=== PATIENT | female | born 1965 | race Caucasian/White ===

== ENCOUNTER 2016-10-12 12:34 | Emergency (ER) | payer BC ==
[~2016-10-12] VITALS: Ht 157.5 cm; Wt 62.5 kg
[~2016-10-12 12:34] MED LIST: PANT40TA4 PO
[2016-10-12 12:36] VITALS: Ht 157.5 cm; Wt 62.5 kg
[2016-10-12] MEDS ORDERED: ONDANSETRON (ODT) 4 MG TAB ODT STA (13:07)
[2016-10-12] MEDS ORDERED: HYDROCODONE/APAP (5/325) TAB PO ONE (13:30)
[2016-10-12] MEDS ORDERED: IBUPROFEN 600 MG TAB PO ONE (13:30)
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
--- NOTE | 2016-10-12 15:09 | RADRPT ---
PROCEDURE: XR Chest. CLINICAL INDICATION: Chest pain TECHNIQUE: AP view of the chest was performed. COMPARISON: None FINDINGS: The cardiomediastinal silhouette is within normal limits. The lungs are clear. No signs of pleural f luid or pneumothorax are seen. The osseous structures and soft tissues are unremarkable. IMPRESSION: No evidence for active cardiopulmonary disease. RPTAT: QQ .Kiah Mathew MD, MD Date Time Electronically viewed and signed by .Kiah Mathew MD, on 10/12/2016 15:08 .F/
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
[2016-10-12] MEDS ORDERED: HYDR-902 PO (15:14)
[2016-10-12] MEDS ORDERED: IBUP-1542 PO (15:14)
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
[2016-10-12] MEDS ORDERED: HYDR-906 PO (15:23)
[2016-10-12 15:38] VITALS: BP 126/72; PULSE 71; RESP 19; TEMP 98.2
== END 2016-10-12 15:40 | disposition home or self-care (01) ==
LOC: FTE 12:34
DX: S63.502A Unspecified sprain of left wrist, initial encounter (principal); R51 Headache; R07.9 Chest pain, unspecified; V49.40XA Driver injured in collision with unspecified motor vehicles in traffic accident, initial encounter
CPT/HCPCS: 29125; 70450; 70486; 71010; 72125; 73110; 99285; Z7610